=== PATIENT | female | born 1975 | race Two or more races ===

== ENCOUNTER 2023-04-26 10:23 | Outpatient (AMB) | payer MEDICAID, SELFPAY ==
--- NOTE | 2023-04-26 10:39 | MHC.AMNUTRGE ---
Intake VS Expanded 04/26/23 18:58 04/27/23 10:26 Height 5 ft 5 in 5 ft 5 in Weight 133 lb 0.2 oz 133 lb 0.2 oz BMI 22.1 22.1 Intake Visit Reasons: Nutrition Allergies No Known Allergies [No Known Allergies*] Allergy (Unverified 04/11/20 19:00) HPI Nutrition Presentation Details Pt presents for nutrition consult for nutritional feeds. The Pt was referred by Dr. Anna Velásquez. The Pt is accompanied by a staff from [facility]. The Pt is non verbal , non ambulatory, has dx of cerebral palsy, quadruplegia and is dependent on tube feeding. The Pt is NPO and obtains her nutrition via G- tube feedings as follows: on Fibersource HN 1.2 at 75 ml/hr from 7 PM to 7AM (total of 900 ml/d), 30 ml water flush before and after feedings, 250 ml water boluses 4 times a day, 75 ml water with protein supplement (procel 1 scoop 5 g protein) three times a day The Pt is on fibersource HN 1.2 since August 2022 and staff reports Pt's weight has maintained: wt in August at 132.8 and weight in February at 133.2 lbs. Staff reports Pt appears to tolerate feedings well, deny any vomiting, diarrhea, swelling The Pt is also receiving the following via G-tube: procel protein powder 1 scoop (5 g of protein) 3 times/day with 75 ml water each time. Multivitamin once daily oyster shell calcium tablet 500 mg calcium citrate 500 mg 2 tabs per day vitamin D 3 1600 IU/day No nutritional labs at the time of this appointment. Nutrition Needs Calculation Weight 133 lb Estimated kcal needs (kcal/day) 1,500 (as per MSJ) Estimated protein needs (gm/day) 60 (60-72 g/d as 1.0- 1.2 g/kgBW) Estimated fluid needs (mls/day) 1,800 (1591-4316 as per 30-35 ml/kg BW) XRQ-Gjytgej-Vu.Jeor Equation Height 5 ft 5 in Weight 133 lb Resting Metabolic Rate 1232.47 Calculated Activity Level Sedentary Calories Needed to Maintain Weight 1478.96 Most Recent Diabetes Results: No Data to Display Assessment & Plan Assessment & Plan (1) Feeding by G-tube: Code(s): Z93.1 - Gastrostomy status Plan: In view of weight maintenance as per recorded weight from Aug to February of 2023, may recommend continuing feeds as established : Fibersource HN 1.2 at 75 ml per hour ( total of 900 ml per day) with additional 5 g of protein (from procel protein powder) three times a day with 75 ml of water each time . May recommend increasing free water to 275 ml 4 times a day. This provides total calories 1170 calories, 63.6 g protein, 1829 ml water May recommend increasing rate of formula feed to 85 ml/hr from 7pm - 7AM (total of 1020 ml) with 30 ml water before and after feeding and provide 245 ml free water 4 times/day plus 10 g of protein with 150 ml water if noticing Pt losing weight reaching 128 lbs or less (this will provide 1224 kcal, 65 g protein , 1836 ml water) Patient Instructions: Continue feeding as established in view of weight maintenance: Fibersource HN 1.2 at 75 ml per hour ( total of 900 ml per day) with additional 5 g of protein (from procel protein powder) three times a day with 75 ml of water. May recommend increasing free water to 275 ml four times a day May recommend monitoring nutritional labs: for Anemia: iron, vitamin B 12 , folate, pre albumin Consider increasing rate of formula feed if noticing weight loss (128 lbs or less) as recommend under plan above. Coding Level of Care Code Nutr Indiv Intake (30148) Diagnoses Feeding by G-tube Z93.1 Time Spent (min) 30
[2023-04-26 18:58] VITALS: BMI 22.1
[2023-04-28 12:25] VITALS: BMI 22.1
== END 2023-04-26 13:45 | disposition home or self-care (01) ==
PROVIDERS: PCP Internal Medicine; Visit Provider Dietitian, Registered
DX: Z93.1 Gastrostomy status (principal)

== ENCOUNTER → 2023-04-26 10:23 | Outpatient (BNVA) | payer MEDICAID, SELFPAY | PROVIDERS: PCP Internal Medicine; Visit Provider Dietitian, Registered | DX: Z93.1 Gastrostomy status (principal); G80.8 Other cerebral palsy; Z71.3 Dietary counseling and surveillance | CPT/HCPCS: 97802; 99202 ==

== ENCOUNTER 2023-06-29 09:51 | Outpatient (AMB) | payer MEDICAID, SELFPAY ==
[2023-06-29 10:19] VITALS: BMI 22.5
--- NOTE | 2023-06-29 10:19 | MHC.AMNUTRGE ---
Intake VS Expanded 06/29/23 10:19 Height 5 ft 5 in Weight 135 lb 1 oz BMI 22.5 Intake Visit Reasons: feeding tube Allergies No Known Allergies [No Known Allergies*] Allergy (Unverified 04/11/20 19:00) Medication List - Last Reconciled 06/29/[address], LDN calcium carbonate (Oyster Shell Calcium) 500 mg PO DAILY calcium citrate 500 mg PO BID cholecalciferol (vitamin D3) (Vitamin D3) 25 mcg PO DAILY multivitamin with minerals pkgs PO protein ea PO HPI Nutrition Presentation Details Pt presents for nutrition f/u consult for nutritional feeds. The Pt was referred by Dr. Anna Velásquez. The Pt is accompanied by a staff from [facility]. The Pt is non verbal , non ambulatory, has dx of cerebral palsy, quadruplegia and is NPO and dependent on feedings via G tube. Feedings are as follow: Fibersource HN 1.2 at 75 ml/hr from 7 PM to 7AM (total of 900 ml/d), 30 ml water flush before and after feedings, 300 ml water boluses 4 times a day, 30 ml water with protein supplement (procel 1 scoop 5 g protein) three times a day (procel protein powder 1 scoop= 5 g protein/25 calories) and 30 ml with medications No current lab information at the time of this appointment Staff reports weight in 04/26/23 at 133.1 lbs May 12, 2023 at 135.1, wt on 06/09/2023 at 134.9 , staff deny skin breakdown, no wounds, no signs of dehydration, or over hydration. Pt tolerating feedings well, no questions or concerns expressed at this time. Pt is also receiving via Social IQ (Social Influence Quotient)ube: Multivitamin with mineral once daily oyster shell calcium tablet 500 mg calcium citrate 500 mg 2 tabs per day vitamin D 3 1600 IU/day No nutritional labs at the time of this appointment. Assessment Assessment details Used wt 60 kg ( from 04/2023) Est kcal needs as per MSJ : 1500 kcal/d Est fluid needs as per 30-35 ml/kg bw: 4700-4291 ml/d Est protein as per 1.0- 1.2 g/kg bw: 60-72 g/d Pt is currently on Fiber source HN 1.2 via G tube at 75 ml/hour for 12 hours (900 ml/day) plus 1 scoop of protein powder 3 times a day. This provides 1164 calories and 64 g of protein per day Fluid intake: 729 ml from formula plus 300 ml 4 times/day and additional 150 ml for medications distributed in 30 ml portions Pt's weight is maintaining with current formula feeds at 19 kcal /kg body weight, receiving 1g protein/kg bw and obtaining about 2079 ml fluids per day. Pt is getting multivitamins with fiber and is also on calcium supplements and fiber supplements. Per staff Pt is tolerating feedings well, no vomiting, no diarrhea, no wounds Most Recent Diabetes Results: No Data to Display Assessment & Plan Assessment & Plan (1) Feeding by G-tube: Code(s): Z93.1 - Gastrostomy status Plan: Continue feeds as established. Follow up in 6 months. Call for questions or concerns prior to next follow up Patient Instructions: Continue feeds as established. Follow up in 6 months. Call for questions or concerns prior to next follow up Coding Level of Care Code Nutr Indiv Subseq (91293) Diagnoses Feeding by G-tube Z93.1 Time Spent (min) 30
== END 2023-06-29 10:35 | disposition home or self-care (01) ==
PROVIDERS: PCP Internal Medicine; Visit Provider Dietitian, Registered
DX: Z93.1 Gastrostomy status (principal)

== ENCOUNTER → 2023-06-29 09:51 | Outpatient (BNVA) | payer MEDICAID, SELFPAY | PROVIDERS: PCP Internal Medicine; Visit Provider Dietitian, Registered | DX: Z93.1 Gastrostomy status (principal) | CPT/HCPCS: 97803 ==

== ENCOUNTER 2023-12-22 10:35 | Outpatient (AMB) | payer MEDICAID, SELFPAY ==
--- NOTE | 2023-12-22 10:45 | A.OFFVIS_ITS ---
VS Expanded 12/22/23 11:05 Height 5 ft 5 in Weight 135 lb 0.4 oz BMI 22.5 Intake Visit Reasons: feeding tube/CONFIRMED Allergies No Known Allergies [No Known Allergies*] Allergy (Unverified 04/11/20 19:00) Nutrition Presentation Details: Pt presents for MNT f/u for enteral feedings. The Pt is followed by Dr. Anna Velásquez. The Pt is accompanied by a staff from [facility]. The Pt is non verbal , non ambulatory, has dx of cerebral palsy, quadruplegia. The Pt is NPO, dependent on feedings via G tube. Feedings are as follow: Fibersource HN 1.2 at 75 ml/hr from 7 PM to 7AM (total of 900 ml/d), 30 ml water flush before and after feedings, 300 ml water boluses 4 times a day, 30 ml water with 1 scoop of procel protein supplement three times a day (procel protein powder 1 scoop= 5 g protein/25 calories) . Pt is also getting 30 ml of water with fiber supplement (getting 1 packet of metamucil = 2.4 g of fiber ) and with medications No current lab information at the time of this appointment Staff reports weight continues stable at 135.4 lbs Staff deny skin breakdown. Pt has no wounds, no signs of dehydration, or over hydration. No nutritional labs at the time of this appointment. Pt tolerating feedings well. Pt is also receiving via Gtube: Multivitamin with mineral once daily oyster shell calcium tablet 500 mg calcium citrate 500 mg 2 tabs per day vitamin D 3 1600 IU/day Staff reports noticing daily liquid stools, once or twice a day. NOTED Pt is on citrucel (metamucil daily), Colace - which per staff is stopped if loose stools and also on miralax for constipation. BS Monitoring Most Recent Diabetes Results: No Data to Display Nutrition Needs Calculation Weight: 135 lb (61 kg) Estimated protein needs (gm/day): 61 (1.0 g /kg bw) Estimated fluid needs (mls/day): 2,300 (as per William Rebolledo) Assessment & Plan Assessment & Plan (1) Feeding by G-tube: Code(s): Z93.1 - Gastrostomy status Category: Medical Plan: In view of weight maintenance , may recommend continuing feeds as established : Fibersource HN 1.2 at 75 ml per hour for 12 hour s(7pm to 7AM) ( total of 900 ml per day) with additional 5 g of protein (from procel protein powder) three times a day with 30 ml of water each time and 300 ml water bolus 4 times a day . This provides total calories 1155 calories, 63.6 g protein, and total of 2300 (727 ml water from formula 1573 ml additional water distributed throughout the day for water bolus/flushing/meds) RECOMMENDATION TO PCP: Cha recommend considering discontinuing miralax as this may be causing liquid stools in the Pt . RD will Re evaluate in 3 months : need to increase fiber/fluid if developing constipation Patient Instructions: Continue feedings as above May recommend for PCP to consider discontinuing miralax due to possibly causing liquid stools. Coding Level of Care Code Nutr Indiv Subseq ([id number]) Diagnoses Feeding by G-tube Z93.1 Time Spent (min) 30
[2023-12-22 11:05] VITALS: BMI 22.5
== END 2023-12-22 11:10 | disposition home or self-care (01) ==
PROVIDERS: PCP Internal Medicine; Visit Provider Dietitian, Registered
DX: Z93.1 Gastrostomy status (principal)

== ENCOUNTER → 2023-12-22 10:35 | Outpatient (BNVA) | payer MEDICAID, SELFPAY | PROVIDERS: PCP Internal Medicine; Visit Provider Dietitian, Registered | DX: Z93.1 Gastrostomy status (principal) | CPT/HCPCS: 97803 ==

== ENCOUNTER 2024-04-24 10:37 | Outpatient (AMB) | payer MEDICAID, SELFPAY ==
--- NOTE | 2024-04-24 10:45 | MHC.AMNUTRGE ---
VS Expanded 04/24/24 10:48 Height 5 ft 5 in Weight 135 lb BMI 22.5 Intake Visit Reasons: feeding tube/CONFIRMED Allergies No Known Allergies [No Known Allergies*] Allergy (Unverified 04/11/20 19:00) Nutrition Presentation Details: Pt presents for MNT flu for Tube feeding Staff reports no concerns, Pt tolerating formula well , bowel movements are normal for her, without loose stools. PT on Fibersource HN 1.2 at 75 ml per hour for 12 hour s(7pm to 7AM) ( total of 900 ml per day) with additional 5 g of protein (from procel protein powder) three times a day with 30 ml of water each time and 300 ml water bolus 4 times a day BS Monitoring Most Recent Diabetes Results: No Data to Display Assessment & Plan Assessment & Plan (1) Feeding by G-tube: Code(s): Z93.1 - Gastrostomy status Category: Medical Plan: In view of weight maintenance and tolerance to the current feedings may recommend continuing feeds as established : Fibersource HN 1.2 at 75 ml per hour for 12 hour s(7pm to 7AM) ( total of 900 ml per day) with additional 5 g of protein (from procel protein powder) three times a day with 30 ml of water each time and 300 ml water bolus 4 times a day . This provides total calories 1155 calories, 63.6 g protein, and total of 2300 (727 ml water from formula 1573 ml additional water distributed throughout the day for water bolus/flushing/meds) Call for any questions prior to next f/u. Coding Level of Care Code Nutr Indiv Subseq ([id number]) Diagnoses Feeding by G-tube Z93.1 Time Spent (min) 20
[2024-04-24 10:48] VITALS: BMI 22.5
== END 2024-04-24 11:05 | disposition home or self-care (01) ==
PROVIDERS: PCP Internal Medicine; Visit Provider Dietitian, Registered
DX: Z93.1 Gastrostomy status (principal)

== ENCOUNTER → 2024-04-24 10:37 | Outpatient (BNVA) | payer MEDICAID, SELFPAY | PROVIDERS: PCP Internal Medicine; Visit Provider Dietitian, Registered | DX: Z93.1 Gastrostomy status (principal) | CPT/HCPCS: 97803 ==

== ENCOUNTER 2024-10-31 10:03 | Outpatient (AMB) | payer MEDICAID, SELFPAY ==
--- NOTE | 2024-10-31 10:17 | A.OFFVIS_ITS ---
VS Expanded 10/31/24 10:21 Height 5 ft 5 in Weight 141 lb 0.5 oz BMI 23.5 Intake Visit Reasons: Feeding tube tolerance/ gain weight Allergies No Known Allergies [No Known Allergies*] Allergy (Unverified 04/11/20 19:00) Medication List - Last Reconciled 11/02/[address], LDN bisacodyl (Dulcolax (bisacodyl)) 10 mg HI ONCE PRN calcium carbonate (Oyster Shell Calcium) 500 mg PO DAILY cholecalciferol (vitamin D3) (Vitamin D3) 1,200 units feeding tube DAILY clobazam (Onfi) 10 mg feeding tube BID docusate sodium 100 mg feeding tube BID lamotrigine ER (Lamictal XR) 300 mg PO .twice methylcellulose (laxative) (Citrucel) 1,000 mg feeding tube DAILY multivitamin with minerals pkgs PO protein ea PO sennosides-docusate sodium 8.6-50 mg (Laxative Stool Softener With Senna) 1 tab- cap PO BEDTIME Nutrition Presentation Details: Pt presents for MNT f/u on nutritional feeds. Pt 's PCP Dr. Anna Velásquez Pt resides in correction and presents with staff during this appointment. Staff reports recent visit at the PCP shows gradual weight gain with most recent weight at 141 lbs Hx: The Pt is non verbal , non ambulatory, has dx of cerebral palsy, quadruplegia and is dependent on enteral feeding via Gtube. Pt currently on Fibersource HN 1.2 at 75 ml/hr from 7 PM to 7AM (total of 900 ml/d), 30 ml water flush before and after feedings, 300 ml water boluses 4 times a day, Pt also getting protein supplement (procel 1 scoop 5 g protein) three times a day mixed with water No current labs/doctors note during this visit. Office notes and most recent labs requested from PCP- contacted Dr. Velásquez's office at [phone]. BS Monitoring Most Recent Diabetes Results: No Data to Display Nutrition Needs Calculation Weight: 141 lb Estimated kcal needs (kcal/day): 960 (15 - 18 kcal/kg current BW) Estimated protein needs (gm/day): 61 (0.8-1.2 g/kg BW) Estimated fluid needs (mls/day): 2,400 (as per William Segar) Assessment & Plan Assessment & Plan (1) Feeding by G-tube: Code(s): Z93.1 - Gastrostomy status Category: Medical Plan: Reduce total caloric intake to prevent further weight gain as follow * Provide Fibersource HN 1.2 at 80 ml per hour for 10.5 hour ( total of 840 ml per day), flush with 30 ml water before and after feeding. (This provides about 1000 calories, 41 g protein , 10 g fiber , 740 ml water) * Increase protein to 2 scoops procel protein mixed with 480 ml water 2 times a day (This provides 20 g of protein, 100 agustin, and 960 ml water) * Additional water to meet recommended needs: 200 ml x 4 per day (to be used for water flush ,meds, water bolus) This provides a total of 1100 agustin, 61 g prot, 10 g fiber, 2440 ml water Monitor weight weekly, assess for dehydration , constipation , diarrhea, Call for any questions prior to next f/u. Coding Level of Care Code Nutr Indiv Subseq ([id number]) Diagnoses Feeding by G-tube Z93.1 Time Spent (min) 30
[2024-10-31 10:21] VITALS: BMI 23.5
--- OUTSIDE RECORDS SUMMARY | 2024-10-31 11:42 | XMS_ITS | Clinical Summary ---
Author Organization [facility] Facility Address [address] [place] [id number] Care Team Providers Care Pen Ruler Operator Name Role Phone Unavailable Primary Care Provider Unavailabl e Social History Tobacco Use Types Packs/Day Years Used Date Smoking Tobacco: Never Assessed Comments Unknown Sex and Gender Information Value Date Recorded Sex Assigned at Not on file Legal Sex Female 12:04 PM EDT Gender Identity Not on file Sexual Orientation Not on file Plan of Treatment Health Maintenance Due Date Last Done Comments Breast Cancer Screening 1973 Hepatitis B Vaccine (1 of 3 - 19+ 3-dose series) 1992 Colorectal Cancer Screening: Annual FOBT 2022 Colorectal Cancer Screening: Colonoscopy 2022 Colorectal Cancer Screening: Sigmoidoscopy 2022 Influenza Vaccine (Season Ended) 2025 Pneumococcal Vaccine: Pediat rics (0 to 5 Years) and At-Risk Patients (6 to 64 Years) Aged Out No longer eligible b ased on patient's age to complete this topic Insurance [place]
--- OUTSIDE RECORDS SUMMARY | 2024-10-31 11:42 | XMS_ITS | Data Portability ---
Author Organization [place] - [facility], Allergy Address [address] [address] Care Team Providers Care Molybdenum Steamer Operator Name Role Phone JUSTIN MONROY Primary Care Provider Assessment Encounter Date Assessment Date Assessment LastModified by Organization Details LastModified Time 06/20/2024 06/20/2024 Impacted cerumen was debrided bilaterally today using suction. She will follow up in six months. [email or web address] Not available 06/20/2024 13:45:31 Plan of Treatment Reminders Order Date Submit Date Provider Last Modified By Organization Details Last Modified Time Details Appointments Establish ed 15 2024 01:15P Nathaly BOWEN PA-C Not available Not available Not available Lab None recorded. Referral None recorded. Procedures None recorded. Surgeries None recorded. Imaging None recorded. Medication Orders None recorded. Patient TargetsNo targets recorded. Patient InstructionsNo instructions recorded. Reason for Referral None Reported. Problems Name Problem SNOMED Code Status Onset Date Resolution Date Notes Provider Name and Address Organization Details Recorded Time Impacted cerumen of bilateral ears [id number] 42126 Active 2017 Impacted cerumen, bilateral ; Note: Date Diagnosed : 04/28/2018 11:07 AM (H61.23) Not Available [facility] 03:30:10 Problem Notes None recorded. Medical Equipment None Reported. Allergies Allergen ID Allergen Name Allergen Category Reaction Reaction Severity Criticality Documentation Date Start Date Code Code System Note Provider Name and Address Organization Details Recorded Time 042522 valproic acid medicatio n other Not available Not available 12/07/2023 42756 RxNorm React ion: unkno wn, unspe cifie d;; Not Available [facility] 01:23:55 [id number] penicilli n V potassium medicatio n other Not available Not available 12/07/2023 5 RxNorm React ion: unkno wn, unspe cifie d;; Not Available [facility] 01:23[facility]56 Medications Name Sig Start Date Stop Date Status Note LastModified by Organization Details LastModified Time oyster shell calcium 500 mg tabs active Not Available Not Available Not Available diphenhyd ramine 12.5 mg/5 mL oral liquid active Not Available Not Available Not Available albuterol sulfate 2.5 mg/3 mL (0.083 %) solution for nebulizat ion active Not Available Not Available Not Available cetirizin e 10 mg tablet active Not Available Not Available Not Available azithromy sriram 250 mg tablet active Not Available Not Available No t Available Milk of Magnesia 400 mg/5 mL oral suspensio n active Not Available Not Available Not Available bacitraci n 500 unit/gram topical ointment active Not Available Not Available Not Available Enema Disposabl e 19 gram-7 gram/118 mL active Not Available Not Available Not Available Ciloxan 0.3 % eye drops 06/03 completed Medicati on ID: [id number] D uration Value: 5 Prescri bed By Name: TYSON Beauchamp nd Name: Ciloxan Send Method: E-Prescr ibed Sub s Allowed: subs OK Speci al Instruct ion: Instill 4 drops twice a day into left ear for 5 days Med icationG enericNa me: Ciloxan Not Available Not Available Not Available Sudogest 30 mg tablet active Not Available Not Available Not Available acetamino phen ER 650 mg tablet,ex tended release active Not Available Not Available Not Available Vitamin D3 10 mcg (400 unit) tablet active Not Available Not Available Not Available calcium 500 mg (as calcium carbonate 1,250 mg) tablet active Not Available Not Available Not Available bisacodyl 10 mg rectal supposito ry active Not Available Not Available Not Available promethaz ine 25 mg tablet active Not Available Not Available Not Available Citrucel 500 mg tablet active Not Available Not Available Not Available ibuprofen 400 mg tablet active Not Available Not Available Not Available Ear Drops (carbamid e peroxide) 6.5 % 4 drop into both ears active Not Available Not Available No t Available docusate sodium 100 mg capsule active Not Available Not Available Not Available polyethyl omid glycol 3350 17 gram/dose oral powder active Not Available Not Available Not Available Citrucel (sucrose) oral powder 2017 active Medicati on ID: [id number] B rand Name: Citrucel (sucrose ) Send Method: E-Prescr ibed Sub s Allowed: subs OK Medic ationGen ericName : Citrucel (sucrose ) Not Available Not Available Not Available multivita min capsule 2017 active Medicati on ID: [id number] B rand Name: multivit valentine Sen d Method: E-Prescr ibed Sub s Allowed: subs OK Medic ationGen ericName : multivit valentine Not Available Not Available Not Available lamotrigi ne 100 mg tablet active Not Available Not Available Not Available levetirac etam 100 mg/mL oral solution active Not Available Not Available Not Available metoprolo l tartrate 25 mg tablet TAKE 1 TABLET BY GASTROST CHRISTOPHER TUBE ROUTE 2 (TWO) TIMES A DAY NEEDED (HR >100 HOLD FOR SBP <100). active Not Available Not Available No t Available Procel Singles 5 gram-26 kcal oral powder packet 2017 active Medicati on ID: [id number] B rand Name: Procel Singles Send Method: E-Prescr ibed Sub s Allowed: subs OK Medic ation ericName : Procel Singles Not Available Not Available Not Available Vitamin D3 10 mcg (400 unit) capsule 2017 active Medicati on ID: [id number] B rand Name: Vitamin D3 Send Method: E-Prescr ibed Sub s Allowed: subs OK Medic ationGen ericName : Vitamin D3 Not Available Not Available Not Available vitamins A and D-white petrolatu m-lanolin topical ointment active Not Available Not Available Not Available One Daily Multivita mins with Minerals 4.5 mg iron tablet active Not Available Not Available Not Available Lamictal XR 250 mg tablet,ex tended release 2017 active Medicati on ID: [id number] B rand Name: Lamictal XR Send Method: E-Prescr ibed Sub s Allowed: subs OK Medic ationGen ericName : Lamictal XR Not Available Not Available Not Available clobazam 10 mg tablet active Not Available Not Available Not Available Stimulant Laxative Plus 8.6 mg-50 mg tablet active Not Available Not Available Not Available Vitals None Recorded Social History None recorded. Functional Status None recorded. Mental Status None recorded. Family History Nothing Reported. Medical History No medical history recorded. Gynecological HistoryNo gynecological history recorded. Obstetrics History GPAL:G 0 P 0 0 0 0 Past Encounters Encounter ID Performer Location Encounter Start Date Encounter Closed Date Diagnosis/Indication Diagnosis SNOMED-CT Code Diagnosis ICD10 Code Diagnosis Note [id number] EMERY PALUMBO MD [facility] on [address] [place] [address] 06/20/2024 13:20:05 06/20/2024 13:42:06 Impacted cerumen of bilateral ears [id number] 116182 H61.23 Health Concerns Section Related Observation LastModified by Organization Detai ls LastModified Time None Recorded Concern Status LastModified by Organization Details LastModified Time None Recorded Advance Directives Directive None Recorded Payers Encounter Date Sequence Insurance Name Policy Number Policy Herrera Covered Member ID Herrera Member ID Guarantor Name 06/20/2024 1 [facility] Padmini Garcia [id number] Padmini Garcia Notes Date Note Type Note Provider Name and Address Organization Details Recorded Time 06/20/2024 text/html 48 year old alyssa scruggs with developmental delay presents today with a landscape laborer for an ear cleaning.No specific concerns from her landscape laborer today. EMERY PALUMBO MD [address] [place] [address], [phone], [facility] - [facility] 06/21/2024 11:24:01 OBGyn Episode No OBEpisode recorded.
--- OUTSIDE RECORDS SUMMARY | 2024-10-31 11:42 | XMS_ITS | Data Portability ---
Author Organization [place] - [facility] Address [address] [place] [address] Care Team Providers Care Cruise Counselor Name Role Phone YORKKATY Primary Care Provider Assessment Encounter Date Assessment Date Assessment LastModified by Organization Details LastModified Time 05/09/2020 05/09/2020 Overview/History :Michael hodge is a 44-year-old female that as a new patient who [facility]. She resides in a custodial, she has a medical history significant for seizures and developmental delay. 1 of the other residents of her custodial had a fever and now as a prophylactic measure staff at her custodial are having all the residents tested. They report she is at any symptoms concerning for COVID, no fevers and has been in her usual state of health. Exam: On exam patient is awake and alert, she is tracking, not following commands and is nonverbal. She appears in no acute distress, respirations are even and unlabored no increased work of breathing. Palpable peripheral pulses. DDx considered, but not limited to:Not an urgent care visit asymptomatic COVID testing. Work up/Results: The patient was swabbed for COVID-19. Plan/Discussion:I discussed with custodial staff that the patient's COVID test results would likely be back in the next 3-5 days. I did advise that I have attached the patient's PCP to the order so that they will also be getting a copy of the patient's results. We will be in contact with the custodial when the COVID-19 test has resulted. In order to obtain further information and compare any laboratory results/values, I have accessed old patient records. This information was pertinent in my medical decision making today. Proper Personal Protective Equipment (PPE), including gloves, eye protection, N95 mask, gown, and shoe covers were donned and doffed appropriately and all equipment cleaned using approved technique with germicidal disposable wipes prior to and after care of this patient according to [facility]'s infection prevention protocols. The patient under our care today has requested testing for the COVID-19 virus. Currently, they are asymptomatic. Testing was discussed with the patient to ensure understanding of the limitations of this test, including the fact that a negative test does not entirely exclude the possibility of COVID-19 infection. Based on the history obtained and exam today, the decision was made to test for COVID-19 in light of the current pandemic state. The patient was involved in the decision to test using a shared medical decision-making model. Time On Scene with Patient: 00:42:16 Time On Scene with Patient: 00:42:16 [email or web address] Not available 05/12/2020 05:01:21 09/05/2020 09/05/2020 Overview/History :Michael hodge is a 44-year-old female that resides in a custodial. [facility] staff noted her to be crying with new usually last night and believed that her left ankle may appear slightly more swollen than usual. They deny any known trauma. She had received 1 dose of ibuprofen which seemed to help things. Staff present during my visit report that she looks comfortable presently. Exam: On exam patient is afebrile and hemodynamically stable. Nontoxic appearing. She is bedfast and contracted. Her left ankle is internally rotated but this not appear to be acute or new. No pain with palpation of left ankle or of left foot. No erythema, trace swelling to bilateral lower extremities. No evidence of acute abnormality or wounds. DDx considered, but not limited to:Soft tissue injury considered as there is some swelling and reported tenderness yesterday though does not appear to be tender now and there is no known precipitating event. Dependent edema considered in most likely period acute fracture considered but less likely as there is no recent trauma. Cellulitis considered but unlikely given no erythema or drainage. Work up/Results:X-ray of left ankle and foot pending to evaluate for evidence of fracture. Plan/Discussion:I discussed with the line manager of the custodial that she is not showing any signs of pain during my exam today. I have advised for her to take ibuprofen 3 times daily for the next 3 days. If she continues to have pain she can use her peer and for Tylenol. I did explain that I would arrange for mobile imaging to ensure that there is no acute fracture to the area. I did reassure her I see no evidence of infection. In order to obtain further information and compare any laboratory results/values, I have accessed old patient records. This information was pertinent in my medical decision making today. Time On Scene with Patient: 00:25:44 [email or web address] Not available 09/05/2020 21:26:04 Plan of Treatment Reminders Order Date Submit Date Provider Last Modified By Organization Details Last Modified Time Details Appointments None recorded. Lab SARS CoV 2 RNA (COVID-19), QL, vat operator-PCR, respiratory specimen 2019 020 DOMENICO [facility] (Centralized Electronic Ordering - All Locations), Patient Can Go To The Location Of Their Choice, [id number] 0 07:29:16 Referral None recorded. Procedures None recorded. Surgeries None recorded. Imaging XR, ankle, 3 or more view 2020 021 [email or web address] [facility] ([facility]), [address] [facility] [address], [place], [address], 1 15:15:58 XR, foot, 2 view 2020 021 [email or web address] [facility] ([facility]), [address] [facility], [place], [address], 1 12:29:51 Medication Orders None recorded. Patient TargetsNo targets recorded. Patient Instructions Encounter Date Encounter Id Patient Instructions Last Modified By Organization Details Last Modified Time 05/09/2020 [id number] You will be advi sed of your COVID-19 results as they become available. A [facility] team guide will contact you to let you know the results. We will also communicate the results to your primary care provider if you have one for any follow up needs you may have. Since you do not have symptoms currently, there is no recommendation to self-quarantine. Please continue to wash your hands and practice social distancing as recommended by your local government and public health agencies. If you develop mild symptoms, stay home and isolate yourself. Please continue to monitor the CDC website as the recommendations for length of quarantine change as additional information is released on this virus. Symptoms of Coronavirus What you need to know ? ? ? Anyone can have mild to severe symptoms. ? ? ? Older adults and people who have severe underlying medical conditions like heart or lung disease or diabetes seem to be at higher risk for developing more serious complications from COVID-19 illness. Watch for symptoms People with COVID-19 have had a wide range of symptoms reported ? ranging from mild symptoms to severe illness. Symptoms may appear 2-14 days after exposure to the virus. People with these symptoms may have COVID-19: ? ? ? Fever or chills ? ? ? Cough ? ? ? Shortness of breath or difficulty breathing ? ? ? Fatigue ? ? ? Muscle or body aches ? ? ? Headache ? ? ? New loss of taste or smell ? ? ? Sore throat ? ? ? Congestion or runny nose ? ? ? Nausea or vomiting ? ? ? Diarrhea This list does not include all possible symptoms. The CDC will continue to update this list as we learn more about COVID-19. When to Seek Emergency Medical Attention Look for emergency warning signs* for COVID-19. If someone is showing any of these signs, seek emergency medical care immediately ? ? ? Trouble breathing ? ? ? Persistent pain or pressure in the chest ? ? ? New confusion ? ? ? Inability to wake or stay awake ? ? ? Bluish lips or face *This list does not include all possible symptoms. Please call your medical provider for any other symptoms that are severe or concerning to you. Call 911 or call ahead to your local emergency facility: Notify the radioisotope production operator that you are seeking care for someone who has or may have COVID-19. [email or web address] Not available 05/09/2020 16:22:50 Reason for Referral None Reported. Results Created Date Observation Date Name Description Value Unit Range Abnormal Flag Note LastModifiedBy Organization Detail LastModifiedTime 05/09/20 20 05/15/2020 SARS CoV 2 RNA (COVI D-19) , QL, vat operator-P CR, respi rator y speci men covid-19, ARLENE Not Detec jose Refer ence range : Not Detec jose (NOTE ) This nucle ic acid ampli ficat ion test was devel oped and its perfo rmanc e dominguez cteri stics deter mined by [facility] rp Labor atori es. Nucle ic acid ampli ficat ion tests inclu de PCR and TMA. This test has not been FDA clear ed or appro yaquelin. This test has been autho rized by FDA under an Emerg ency Use Autho rizat ion (EUA) . This test is only autho rized for the durat ion of time the decla ratio n that circu mstan jennie exist justi fying the autho rizat ion of the emerg ency use of in vitro diagn ostic tests for detec tion of SARS- CoV-2 virus and/o r diagn osis of COVID -19 infec tion under secti on 564(b )(1) of the Act, 21 U.S.C . 360bb b-3(b ) (1), unles s the autho rizat ion is termi nated or revok ed soone r. When diagn ostic testi ng is negat agusto, the possi bilit y of a false negat agusto resul t shoul d be consi dered in the torsten xt of a patie nt's recen t expos ures and the prese nce of clini agustin signs and sympt oms consi stent with COVID -19. An indiv idual witho ut sympt oms of COVID - 19 and who is not dustin ing SARS- CoV-2 virus would expec t to have a negat agusto (not detec jose) resul t in this assay . TEST PERFO RMED BY [employer], MAGGIE MARKHAM Y Not Available [facility] (Centralized Electronic Ordering - All Locations) Patient Can Go To The Location Of Their Choice, [id number] 05/15/2020 07:29:16 09/06/19 21 09/06/2020 ankle compl ete, min 3V ANKLE COMPLE TE, MIN 3V, LEFT FINDIN GS: No acute fractu re or disloc ation. The osseou s struct ures appear intact . Joint spaces are preser yaquelin. Soft tissue s are unrema rkable . CONCLU ELIZABETH: No acute osseou s abnorm ality. ELECTR ONICAL LY SIGNED BY SOFIA WAGNER M.D. 021 12:46: 54 PM EST. [email or web address] [facility] ([facility]) [address] [place], [address], 09/06/2020 15:48:09 09/06/19 21 09/06/2020 foot AP and lat 2V FOOT AP and LAT 2V, LEFT FINDIN GS: No acute fractu re or disloc ation. The osseou s struct ures appear intact . Joint spaces are preser yaquelin. Soft tissue s are unrema rkable . CONCLU ELIZABETH: No acute osseou s abnorm ality. ELECTR ONICAL LY SIGNED BY SOFIA WAGNER M.D. 12:46: 54 PM EST. ANKLE COMPLE TE, MIN 3V, LEFT Result s: No acute fractu re or disloc ation. The osseou s struct ures appear intact . Joint spaces are preser yaquelin. Soft tissue s are unrema rkable . Conclu elizabeth: No acute osseou s abnorm ality. Electr onical ly signed by SOFIA WAGNER M.D. 12:46: 54 PM EST. FOOT AP and LAT 2V, LEFT Result s: No acute fractu re or disloc ation. The osseou s struct ures appear intact . Joint spaces are preser yaquelin. Soft tissue s are unrema rkable . Conclu elizabeth: No acute osseou s abnorm ality. Electr onical ly signed by SOFIA WAGNER M.D. 12:46: 54 PM EST. [email or web address] [facility] ([facility] [address] [place], [address], 09/06/2020 15:48:10 Result Notes None recorded. Procedures Surgical History Date Name Laterality Status Provider Name and Address Organization Details Recorded Time 05/09/20 20 Medication Review completed KAM ALVARADO NP [address], [place], [address], [place] - [facility] 05/09/2020 17:32:57 Imaging Results Imaging Date Name Status LastModified by Organiz ation Details LastModified Time 09/06/2020 ankle complete, min 3V [facility] [address] [place], [address], 09/06/2020 15:48:09 09/06/2020 foot AP and lat 2V completed [email or web address] [facility] ([facility]) [address] [place], [address], 09/06/2020 15:48:10 Procedure Notes None recorded. Medical Equipment None Reported. Allergies Allergen ID Allergen Name Allergen Category Reaction Reaction Severity Criticality Documentation Date Start Date Code Code System Note Provider Name and Address Organization Details Recorded Time 021286 valproic acid medicatio n Not available Not available Not available 05/09/2020 86898 RxNorm KAM ALVARADO NP [address] [place], [address], [place] [facility] 0 16:20:00 [id number] Product containin g penicilli n (product) medicatio n Not available Not available Not available 05/09/2020 68355 8001 SNOMED KAM ALVARADO NP [address] [place], [address], [place] [facility] 0 16:20:13 Medications Name Sig Start Date Stop Date Status Note LastModified by Organization Details LastModified Time Colace active Not Available Not Availa ble Not Available Lamictal active Not Available Not Avai lable Not Available Debrox active Not Available Not Availa ble Not Available Miralax active Not Available Not Avail able Not Available Keppra active Not Available Not Availa ble Not Available Vitals Date Recorded Body temperature Heart rate Respiratory rate Oxygen saturation Oxygen saturation in Arterial blood by Pulse oximetry Systolic blood pressure Diastolic blood pressure Provider Name and Address Organization Details Last Updated DateTime 0 96.7 [degF] 97 /min 16 /min 97 % 97 % 115 mm[Hg] 72 mm[Hg] Not Available [facility] 0 16:06:28 Date Recorded Heart rate Body temperature Respiratory rate Oxygen saturation Oxygen saturation in Arterial blood by Pulse oximetry Systolic blood pressure Diastolic blood pressure Provider Name and Address Organization Details Last Updated DateTime 1 86 /min 98.4 [degF] 18 /min 98 % 98 % 106 mm[Hg] 68 mm[Hg] Not Available [facility] 1 16:09:58 Social History Question Answer Notes LastModified by Organizat ion Details LastModified Time Do You Have An Advance Directive? Yes [email or web address] Information not available 05/09/2020 What Is Your Code Status? Full Code [email or web address] Information not available 05/09/2020 Sex: Unknown Functional Status None recorded. Mental Status None recorded. Family History Nothing Reported Notes:pt non verbal Medical History Condition Response Diabetes N Coronary Artery Disease N High Cholesterol N Cancer N Pulmonary Embolism N Stroke N Hypertension N Depression N COPD N Asthma N Kidney Disease N Gynecological HistoryNo gynecological history recorded. Obstetrics History GPAL:G 0 P 0 0 0 0 Past Encounters Encounter ID Performer Location Encounter Start Date Encounter Closed Date Diagnosis/Indication Diagnosis SNOMED-CT Code Diagnosis ICD10 Code Diagnosis Note [id number] KAM ALVARADO NP [facility] [address] [place] [address] 05/09/2020 15:45:31 05/15/2020 11:15:36 Exposure to communicable disease 592298435 Z20.828 [id number] KAM ALVARADO NP [facility] [address] [place] [address] 09/05/2020 15:16:03 09/09/2020 11:55:35 Pain of left ankle joint [id number] M25.572 Health Concerns Section Related Observation LastModified by Organization Detai ls LastModified Time None Recorded Concern Status LastModified by Organization Details LastModified Time None Recorded Advance Directives Directive Y: Payers Encounter Date Sequence Insurance Name Policy Number Policy Herrera Covered Member ID Herrera Member ID Guarantor Name 05/09/2020 1 [place] [facility] Padmini Garcia [id number] Padmini Garcia 09/05/2020 1 [place] [facility] Padmini Garcia [id number] Padmini Garcia Notes Date Note Type Note Provider Name and Address Organization Details Recorded Time 05/09/2020 text/html This is a 44-year-old female that is a [facility] patient [facility]. She has a medical history significant for developmental delay and seizures. She is wheelchair bound and nonverbal and resides in a custodial. 1 of the residents at her custodial developed a fever so as a precaution the custodial is having all of their residence swab for COVID. Staff report the patient has been in her usual state of health and has had no fevers or any other concerning symptoms. KAM ALVARADO NP [address], [place], [address], [place] [facility] 05/15/2020 09:05:41 09/05/2020 text/html This is a 44-year-old female that is known to [facility] then this provider. She lives in a custodial. She has a medical history significant for seizures and developmental delay. She is contracted and bedbound at baseline. Staff at the custodial notice her crying more than usual last night and they believe her left foot and ankle maybe slightly more swollen than usual. There is no report of any recent trauma. They are contacting [facility] for evaluation of this. She was given some p.r.n. ibuprofen and that seemed to improve some of her symptoms. KAM ALVARADO NP [address], [place], [address], [place] [facility] 09/05/2020 21:26:12 OBGyn Episode No OBEpisode recorded.
== END 2024-10-31 11:27 | disposition home or self-care (01) ==
PROVIDERS: PCP Internal Medicine; Visit Provider Dietitian, Registered
DX: Z93.1 Gastrostomy status (principal)

== ENCOUNTER → 2024-10-31 10:03 | Outpatient (BNVA) | payer MEDICAID, SELFPAY | PROVIDERS: PCP Internal Medicine; Visit Provider Dietitian, Registered | DX: Z93.1 Gastrostomy status (principal) | CPT/HCPCS: 97803 ==

== ENCOUNTER → 2024-11-20 10:30 | Outpatient (BNVA) | payer MEDICAID, SELFPAY | PROVIDERS: PCP Internal Medicine; Visit Provider Dietitian, Registered | DX: Z93.1 Gastrostomy status (principal); Z71.3 Dietary counseling and surveillance | CPT/HCPCS: 97803 ==

== ENCOUNTER 2025-04-24 10:32 | Outpatient (AMB) | payer MEDICAID, SELFPAY ==
[2025-04-24 10:50] VITALS: BMI 22.8
--- NOTE | 2025-04-24 10:50 | A.OFFVIS_ITS ---
VS Expanded 04/24/25 10:50 Height 5 ft 5 in Weight 137 lb 0.2 oz BMI 22.8 Intake Visit Reasons: Feeding Tube Allergies No Known Allergies (No Known Allergies*) Allergy (Unverified 04/11/20 19:00) Nutrition Presentation Details: Pt presents for MNT f/u Pt had gained 10 lbs over a yr and we are gradually working on reducing total caloric intake to promote weight loss, goal wt 130-133 lbs Pt [facility] and presents with staff during this appointment. Hx: The Pt is non verbal , non ambulatory, has dx of cerebral palsy, quadruplegia and is dependent on enteral feeding via Gtube. Pt is currently on 840 ml Fibersource HN 1.2 /day and 10 g additional protein (whdlrd1o twice a day) this provides 1000 calories and 55 g protein per day. Pt 's weight fluctuates between 137- 140 lbs, 03/27 137.2 04/12 140 04/10 136.4 04/17 138.2 04/24 137.2 Assessment Recommendation: Reduce agustin from feeding formula and increase prot intake to meet needs Nutrition Needs Calculation Weight: 136 lb 10.986 oz Estimated kcal needs (kcal/day): 750 (12-13 kcal/kg bw Pt non ambulatory with cerebral palsy) Estimated protein needs (gm/day): 60 (50-60 g per day (0.8 to 1.0 g /kg bw)) Estimated fluid needs (mls/day): 2,300 (as per William Rebolledo) Assessment & Plan Assessment & Plan (1) Feeding by G-tube: Code(s): Z93.1 - Gastrostomy status Category: Medical Plan: Reduce total calorie by 250 by reducing feeding rate as follows: * Fibersource HN 1.2 @ 71 ML/HR for 10.5 hour/day ( total of 625 ml per day), flush with 30 ml water before and after feeding. (This provides about 750 calories, 34 g protein, 9.5 g fiber, 500 ml water) * Recommend increasing protein procel from 5g twice a day to 15 g mixed with 300 ml water twice a day (for an additional 30 g of protein to meet recommended needs ) and flush with 30 ml water before and after feeding * (DOCTOR- May recommend considering prosource plus liquid protein instead of the powder which can lessen clogging via Gtube * Additional water bolus to meet recommended fluid needs: 300 ml water x 4 per day This provides a total of 900, 64 g prot, 9.5 g fiber, 2400 ml water /d * Keep head of bed elevated, 30-45 degree angles at all times while receiving tube feed. * Check residuals every 4 hours while feed is running during the night. If residual is greater than 160 ml , hld feed for one hour and then recheck. Feed may resume when residual is less than 160 ml. * Monitor weight weekly, working on weight maintenance, monitor bowels for constipation. PCP may recommend monitoring for nutritional deficiencies : Iron, B12, B6, vit D, zinc, mg Coding Level of Care Code Nutr Indiv Subseq (30355) Diagnoses Feeding by G-tube Z93.1
--- OUTSIDE RECORDS SUMMARY | 2025-04-24 11:45 | XMS_ITS | Encounter Summary ---
Author Organization [facility] Address [address] [facility] [address] [place] [address] Phone Care Team Providers Care Casing Operator Name Role Phone Renny Miranda MD Primary Care Provide r Renny Miranda MD Unavailable Siomara Hinson DO Primary Care Provider [phone] Damien Riggs MD Unavailable [phone] Anna Velásquez MD Primary Care Provider Anna Velásquez MD Unavailable [phone] Encounter Details Date Type Department Care Team (Latest Contact Info) Description 02/21/2018 Transcribe Orders [address] [address] Damien Cordova MD [address] [place] [address], [address] [place], [place] [id number] [email or web address] Seizure (Primary Dx) Social History Tobacco Use Types Packs/Day Years Used Date Smoking Tobacco: Never Smokeless Tobacco: Never Alcohol Use Standard Drinks/Week Comments No 0 (1 standard drink = 0.6 oz pur e alcohol) Comments Unknown Sex and Gender Information Value Date Recorded Sex Assigned at Not on file Legal Sex Female 9:31 PM EDT Gender Identity Not on file Sexual Orientation Not on file documented as of this encounter Plan of Treatment Upcoming Encounters Date Type Department Care Team (Late st Contact Info) Description 07/09/2025 10:40 AM EST Office Visit [facility] [place] [facility] [address] [facility] [address] [place] [address] Anna Velásquez MD [address] [facility] [address] [place] [address] [email or web address] 08/08/2025 9:30 AM EST Office Visit [facility], Allergy and Critical Care Medicine 10 [place] [address] Warren Zayas MD 30 [place] [address] [email or web address] documented as of this encounter Results * Levetiracetam (Keppra) level (02/21/2018 9:04 AM EDT) LEVETIRACETAM 20.0 12.0 - 46.0 mcg/mL [facility] Comment: (NOTE) ADDITIONAL INFORMATION This test was developed and its performance characteristics determined by [facility] in a manner consistent with CLIA requirements. This test has not been cleared or approved by the U.S. Food and Drug Administration. Blood 02/21/2018 9:04 AM EDT 02/21/2018 9:22 AM EDT us Damien Cordova MD LAB BLOOD ORDERABLES Final R esult [facility] [address] [place] [address] * LAMOTRIGINE LEVEL (02/21/2018 9:04 AM EDT) LAMOTRIGINE 5.5 2.5 - 15.0 mcg/mL [facility] Comment: (NOTE) ADDITIONAL INFORMATION This test was developed and its performance characteristics determined by [facility] in a manner consistent with CLIA requirements. This test has not been cleared or approved by the U.S. Food and Drug Administration. Blood 02/21/2018 9:04 AM EDT 02/21/2018 9:22 AM EDT us Damien Cordova MD LAB BLOOD ORDERABLES Final R es[facility] [address] [place] [address] documented in this encounter Visit Diagnoses Diagnosis Seizure- Primary Other convulsions documented in this encounter Additional Health Concerns Infection Onset Date Last Indicated Resolved Time CoV-Risk 12/21/2019 12/21/2019 01/04/2020 1:24 AM EDT MDR-GN 12/21/2019 12/21/2019 02/19/2023 1:36 AM EDT CoV-Risk 05/13/2021 05/21/2021 05/31/2021 1:21 AM EDT documented as of this encounter Care Teams Casing Operator Relationship Specialty Start Date End Date Renny Miranda MD [email or web address] PCP - General 05/13/17 07/28/18 Siomara Hinson DO [address] [place] [address] [email or web address] PCP - General 07/29/18 11/28/20 Anna Velásquez MD 15 [facility] [place] [address] [email or web address] PCP - General Family Medicine 11/29/20 Renny Miranda MD [address] [facility] [address] 1 [place] [address] [email or web address] Insurance Assigned Provider 11/27/17 10/29/18 Damien Riggs MD [address] [facility] [place] [address] [email or web address] Insurance Assigned Provider 10/29/18 01/28/19 Anna Velásquez MD [address] [facility] [address] [place] [address] [email or web address] Insurance Assigned Provider 02/01/21 04/03/23 documented as of this encounter Additional Source Comments The information contained in this document represents components of the legal health record. It is not the complete legal health record.[facility]
--- OUTSIDE RECORDS SUMMARY | 2025-04-24 11:45 | XMS_ITS | Encounter Summary ---
Author Organization [facility] Address [address] [place] [address] Phone Care Team Providers Care Sales Contract Administrator Name Role Phone Anna Velásquez MD Primary Care Provider + [phone] Encounter Details Date Type Department Care Team (Late st Contact Info) Description 2024 Procedure Pass [facility], Ct Scan - [address] [address] Social History Tobacco Use Types Packs/Day Years Used Date Smoking Tobacco: Never Smokeless Tobacco: Never Alcohol Use Standard Drinks/Week Comments Never 0 (1 standard drink = 0.6 oz pur e alcohol) Child or Family Care Answer Date Record ed Do you have problems with on e of the following making it difficult for you to work, study, or receive health care? No 07/05/2024 Education Answer Date Recorded Are you interested in help w ith more adult education (for example, completing high school, GED, job training, learning the Icelandic language, technical skills, or developing parenting skills)? No 07/05/2024 Are you concerned about learning? Not on file 07/05/2024 No 07/05/2024 Yes 07/05/2024 Food Answer Date Recorded Within the past 6 months we worried whether our food would run out before we got money to buy more. Never True 07/05/2024 Within the past 6 months the food we bought just didn't last and we didn't have enough money to get more. Never True Residential Stability Answer Date Recor ded What is your housing situation today? I have jayashree sing 07/05/2024 How many times have you move d in the past 12 months? Zero (I did not move) 07/05/2024 Paying for Meds Answer Date Recorded Do you have trouble paying for medicines? No 07/05/2024 Paying Utility Bills Answer Date Record ed Do you have trouble paying your heating or elect ricity bill? No 07/05/2024 Transportation Answer Date Recorded Has the lack of transportati on kept you from medical appointments or from getting medications? No 07/05/2024 Unemployment Answer Date Recorded Are you currently unemployed or working on a part-time or temporary basis, and looking for work? I choose not to answer 04/17/2021 Digital Access Answer Date Recorded Yes 07/05/2024 Yes 07/05/2024 Do you have reliable internet access at home? Ye s 07/05/2024 Do you have a device (e.g., phone, tablet, computer) with a working camera? No 07/05/2024 SNAP & WIC Answer Date Recorded Do you receive benefits from SNAP (the Supplemental Nutrition Assistance Program) or the Food Stamp Program? No 07/05/2024 SNAP is a free program that can help you and your family get access to healthy foods, nutrition classes, utility discounts, and more. Would you be interested in learning more? No 07/05/2024 Can we help you enroll in SNAP? Not on file 07/05/2024 Benefits received from WIC? Not on file 06/25 WIC is a free program, interested in learning mo re? Not on file 07/05/2024 Can we help you enroll in WIC? Not on file 1 09/05/2023 Intimate Partner Violence Answer Date R ecorded Denied Basic Needs Not on file 07/05/2024 In the past 12 months have y ou been in a relationship with a person who hurts, threatens, or tries to control you? No 07/05/2024 Worried food would run out Not on file 07/05 In the past 12 months have y ou been in a relationship with a person who hurts, threatens, or tries to control you? No 07/05/2024 Comments No Sex and Gender Information Value Date Recorded Sex Assigned at Not on file Legal Sex Female 9:31 PM EDT Gender Identity Not on file Sexual Orientation Not on file documented as of this encounter Plan of Treatment Upcoming Encounters Date Type Department Care Team (Late st Contact Info) Description 07/09/2025 10:40 AM EST Office Visit [facility] [address] [address] Anna Velásquez MD [address] [address] 08/08/2025 9:30 AM EST Office Visit [facility] Pulmonary, Allergy and Critical Care Medicine 10 [facility] [place] [address] Warren Zayas MD 30 [place] [address] [email or web address] documented as of this encounter Visit Diagnoses Not on filedocumented in this encounter Additional Health Concerns Assessment Noted Time PHQ-2 Depression Total Score: 0 07/05/20 24 9:35 AM EST documented as of this encounter Care Teams Sales Contract Administrator Relationship Specialty Start Date End Date Anna Velásquez MD [address] [address] PCP - General Family Medicine 11/29/20 documented as of this encounter Additional Source Comments The information contained in this document represents components of the legal health record. It is not the complete legal health record.[facility]
--- OUTSIDE RECORDS SUMMARY | 2025-04-24 11:45 | XMS_ITS | Encounter Summary ---
Author Organization [facility] Address [address] [facility] [address] [place] [address] Phone Care Team Providers Care Practical Nurse Clinical Coordinator Name Role Phone Renny Miranda MD Primary Care Provide r Renny Miranda MD Unavailable [phone] Siomara Hinson DO Primary Care Provider [phone] Damien Riggs MD Unavailable [phone] Anna Velásquez MD Primary Care Provider Anna Velásquez MD Unavailable [phone] Encounter Details Date Type Department Care Team (Latest Contact Info) Description 11/17/2017 Transcribe Orders [address] [address] Perla Zamora, CASSANDRA [address] [facility] [address] [place] [address] [email or web address] Seizure (Primary Dx) Social History Tobacco Use [...] Description 07/09/2025 10:40 AM EST Office Visit [facility] [place] [facility] [address] [facility] [address] [place] [address] Anna Velásquez MD [address] [facility] [address] [place] [address] [email or web address] 08/08/2025 9:30 AM EST Office Visit [facility] Allergy and Critical Care Medicine 10 [place] [address] Warren Zayas MD 30 [place] [address] [email or web address] documented as of this encounter Results * Levetiracetam (Keppra) level (11/17/2017 9:30 AM EDT) LEVETIRACETAM 12.9 12.0 - 46.0 mcg/mL [facility] Comment: (NOTE) ADDITIONAL INFORMATION This test was developed and its performance characteristics determined by [facility] in a manner consistent with CLIA requirements. This test has not been cleared or approved by the U.S. Food and Drug Administration. Blood 11/17/2017 9:30 AM EDT 11/17/2017 9:48 AM EDT us Perla Zamora LOGGER LAB BLOOD ORDERABLES Fin al Result [facility] [address] [place] [address] * LAMOTRIGINE LEVEL (11/17/2017 9:30 AM EDT) LAMOTRIGINE 4.1 2.5 - 15.0 mcg/mL [facility] Comment: (NOTE) ADDITIONAL INFORMATION This test was developed and its performance characteristics determined by [facility] in a manner consistent with CLIA requirements. This test has not been cleared or approved by the U.S. Food and Drug Administration. Blood 11/17/2017 9:30 AM EDT 11/17/2017 9:48 AM EDT us Perla Zamora LOGGER LAB BLOOD ORDERABLES Fin al Result [facility] [address] [place] [address] documented in this encounter Visit Diagnoses Diagnosis Seizure- Primary Other convulsions documented in this encounter Additional Health Concerns Infection Onset Date Last Indicated Resolved Time CoV-Risk 12/21/2019 12/21/2019 01/04/2020 1:24 AM EDT MDR-GN 12/21/2019 12/21/2019 02/19/2023 1:36 AM EDT CoV-Risk 05/13/2021 05/21/2021 05/31/2021 1:21 AM EDT documented as of this encounter Care Teams Practical Nurse Clinical Coordinator Relationship Specialty Start Date End Date Renny Miranda MD [email or web address] PCP - General 05/13/17 07/28/18 Siomara Hinson DO [address] [place] [address] [email or web address] PCP - General 07/29/18 11/28/20 Anna Velásquez MD 15 [facility]. [address] [place] [address] [email or web address] PCP - General Family Medicine 11/29/20 Renny Miranda MD [address] [facility] [address] 1 [place] [address] [email or web address] Insurance Assigned Provider 11/27/17 10/29/18 Damien Riggs MD [address] [facility] [place] [address] [email or web address] Insurance Assigned Provider 10/29/18 01/28/19 Anna Velásquez MD [address] [facility] [address] [place] [address] [email or web address] Insurance Assigned Provider 02/01/21 04/03/23 documented as of this encounter Additional Source Comments The information contained in this document represents components of the legal health record. It is not the complete legal health record.[facility]
--- OUTSIDE RECORDS SUMMARY | 2025-04-24 11:45 | XMS_ITS | Encounter Summary ---
Author Organization [facility] Address [address] [place] [address] Phone Care Team Providers Care Jingle Writer Name Role Phone Anna Velásquez MD Primary Care Provider [phone] Encounter Details Date Type Department Care Team (Late st Contact Info) Description 08/09/2024 Procedure Pass [facility], Ct Scan - [address] [address] Social History Tobacco Use Types Packs/Day Years [...] high school, GED, job training, learning the American language, technical skills, or developing parenting skills)? [...] 07/09/2025 10:40 AM EST Office Visit [facility] [place] [facility] [address] [address] Anna Velásquez MD [address] [address] 08/08/2025 9:30 AM EST Office Visit [facility] Pulmonary, Allergy and Critical Care Medicine 10 [facility] [place] [address] Warren Zayas MD 30 [place] [address] [email or web address] documented as of this encounter Visit Diagnoses Not on filedocumented in this encounter Additional Health Concerns Assessment Noted Time PHQ-2 Depression Total Score: 0 07/05/20 24 9:35 AM EST documented as of this encounter Care Teams Jingle Writer Relationship Specialty Start Date End Date Anna Velásquez MD [address] [address] PCP - General Family Medicine 11/29/20 documented as of this encounter Additional Source Comments The information contained in this document represents components of the legal health record. It is not the complete legal health record.[facility]
--- OUTSIDE RECORDS SUMMARY | 2025-04-24 11:45 | XMS_ITS | Clinical Summary ---
Author Organization [facility] Address [address] [place] [address] Care Team Providers Care Rolled Oats Mill Operator Name Role Phone Unavailable Primary Care [...] (1 of 3 - 19+ 3-dose series) 09/20 Colorectal Cancer Screening: Annual FOBT 2022 Colorectal Cancer Screening: Colonoscopy 2022 Colorectal Cancer Screening: Sigmoidoscopy 2022 Pneumococcal Vaccine: 50+ Years (1 of 1 - PCV) 024 Influenza Vaccine (#1) 2025 [place]
--- OUTSIDE RECORDS SUMMARY | 2025-04-24 11:46 | XMS_ITS | Data Portability ---
Author Organization [facility] Address [address] [place] [phone] Care Team Providers Care Speedometer Inspector Name Role Phone JUSTIN MONROY Primary Care Provider Assessment Encounter Date Assessment Date Assessment LastModified by Organization Details LastModified Time 06/20/2024 06/20/2024 Impacted cerumen was debrided bilaterally today using suction. She will follow up in six months. [email or web address] Not available 06/20/2024 13:45:31 12/21/2024 12/21/2024 Bilateral cerumen impactions debrided with suction. Scant bleeding from both canals after wax was removed. I have prescribed a three day course of Ofloxacin drops for prophylaxis. Follow up in six months for routine cleaning. [email or web address] Not available 12/21/2024 13:51:55 Plan of Treatment Reminders Order Date Submit Date Provider Last Modified By Organization Details Last Modified Time Details Appointments Establish ed 15 2024 11:15A M EMERY PALUMBO MD Not available Not available Not available Lab None recorded. Referral None recorded. Procedures None recorded. Surgeries None recorded. Imaging None recorded. Medication Orders ofloxacin 0.3 % ear drops 2024 025 [facility], [address] [facility], [place], [address], 12/21/2024 13:51:37 Patient TargetsNo targets recorded. Patient InstructionsNo instructions recorded. Reason for Referral None Reported. Problems Name Problem SNOMED Code Status Onset Date Resolution Date Notes Provider Name and Address Organization Details Recorded Time Impacted cerumen of bilateral ears [id number] 04324 Active 2017 Impacted cerumen, bilateral ; Note: Date Diagnosed : 04/28/2018 11:07 AM (H61.23) Not Available [facility] 4 03:30:10 Problem Notes None recorded. Procedures Surgical History Date Name Laterality Status Provider Name and Address Organization Details Recorded Time 5 Cerumen removal without microscope bilat completed Shona Bowen [facility] 12/21/2024 13:49:29 Imaging Results None recorded. Procedure Notes None recorded. Medical Equipment None Reported. Allergies Allergen ID Allergen Name Allergen Category Reaction Reaction Severity Criticality Documentation Date Start Date Code Code System Note Provider Name and Address Organization Details Recorded Time 091923 valproic acid medicatio n other Not available Not available 12/07/2023 78462 RxNorm React ion: unkno wn, unspe cifie d;; Not Available [facility] 4 01:23:55 327869 penicilli n V potassium medicatio n other Not available Not available 12/07/202326717 5 RxNorm React ion: unkno wn, unspe cifie d;; Not Available [facility] 4 01:23:56 Medications Name Sig Start Date Stop Date Status Note LastModified by Organization Details LastModified Time oyster shell calcium 500 mg tabs active Not Available Not Available Not Available diphenhyd ramine 12.5 mg/5 mL oral liquid active Not Available Not Available Not Available albuterol sulfate 2.5 mg/3 mL (0.083 %) solution for nebulizat ion TAKE 3 ML(2.5 MG TOTAL) BY NEBULIZE R EVERY 4 HOURS NEEDED FOR SHORTNES S OF BREATH OR WHEEZING active Not Available Not Available No t Available cetirizin e 10 mg tablet active [...] eye drops 06/03 completed Medicati on ID: [id number] D uration Value: 5 Prescri bed By [...] active Not Available Not Available Not Available ofloxacin 0.3 % ear drops Instill 4 drops twice a day by otic route for 3 days. 2024 active Not Available Not Available Not Avai lable Vitamin D3 10 mcg (400 unit) tablet [...] oral powder 2017 active Medicati on ID: [id number] B rand Name: Citrucel (sucrose ) Send Method: E-Prescr ibed Sub s Allowed: subs [place] Medic ationGen ericName : Citrucel (sucrose ) Not Available Not Available Not Available multivita min capsule 2017 active Medicati on ID: [id number] B rand Name: multivit valentine Sen d [...] powder packet 2017 active Medicati on ID: [id number] B rand Name: Procel Singles Send Method: E-Prescr ibed Sub s Allowed: subs [place] Medic ationGen ericName : Procel Singles Not Available Not Available Not Available Vitamin D3 10 mcg (400 unit) capsule 2017 active Medicati on ID: [id number] B rand Name: Vitamin D3 Send Method: [...] tended release 2017 active Medicati on ID: [id number] B rand Name: Lamictal XR Send Method: [...] Diagnosis SNOMED-CT Code Diagnosis ICD10 Code Diagnosis IMO Codes Diagnosis Note [id number] NIKKI NIETO PA-C [facility] on [address] [place] [phone] 06/20/2024 13:20:05 06/20/2024 13:42:06 Impacted cerumen of bilateral ears [id number] H61.23 36745 SHONA BOWEN PA-C [facility] on [address] [place] [phone] 12/21/2024 13:27:30 12/21/2024 13:50:11 Impacted cerumen of bilateral ears [id number] 067791 H61.23 Health Concerns Section Related Observation LastModified by Organization Detai ls LastModified Time None Recorded Concern Status LastModified by Organization Details LastModified Time None Recorded Advance Directives Directive None Recorded Payers Insurance Date Sequence Insurance Name Policy Number Policy Herrera Covered Member ID Herrera Member ID Guarantor Name 12/25/2024 1 [facility] Padmini Garcia [id number] Padmini Garcia Notes Date Note Type Note Provider Name and Address Organization Details Recorded Time 06/20/2024 text/html ROS as noted in the [facility] 48 year old female with developmental delay presents today with a manifest/order organizer print orders for an ear cleaning.No specific concerns from her manifest/order organizer print orders today. EMERY PALUMBO MD [address] [place] [address], [phone], [facility] 06/21/2024 11:24:01 12/21/2024 text/html ROS as noted in the [facility] 49 year old nonverbal female with developmental delay presents for six month ear cleaning with a manifest/order organizer print orders. No concerns. EMERY PALUMBO MD [address] [place] [address],[address], [phone], [facility] 12/25/2024 07:15:57 OBGyn Episode No OBEpisode recorded.
--- OUTSIDE RECORDS SUMMARY | 2025-04-24 11:46 | XMS_ITS | Clinical Summary ---
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 if she were to fall, however, would not think she would be at high risk for falls other than during transfers. She does not have significant movement with her seizures so do not think those would increase her risk of fracture. I have ordered labs to be done to check her calcium, creatinine, alk phos, PTH & vitamin D along with bone-turnover marker. I have asked them to discuss with the dentist if they are able to provide adequate dental care to make anti-resorptive rx safe should that be considered. I think the options for treatment would be denosumab (which would likely need to be continued indefinitely due to risk of rapid bone loss/vertebral compression fractures with cessation), vs zoledronic acid x 3 doses (if she could sit still for infusion) vs optimizing calcium/vitamin D intake without pharmacologic rx. I would not consider adding rx until she is definitively post-menopausal. For now, will do labs. Will request opinion of dentist and will see her back in the Spring. Assessment & Plan (02/04/2022 2:59 PM EDT): Rx's updated to reflect changes recommended by [facility] Seizure disorder 07/21/2017 Assessment & Plan (07/05/2024 1:16 PM EST): Assessment & Plan (02/08/2024 4:53 PM EDT): No medication changes were made at the hospital so nothing needs to be signed off on or adjusted at this time. She has been well and Dr. Cordova continues to manage her seizure medications. Assessment & Plan (11/26/2023 11:09 AM EDT): Unknown whether Padmini actually had a seizure but it certainly makes sense that she would have one if she ran out of her lamotrigine. Better communication among [facility] staff might have prevented this if Filemon and Rishi could have supplied alternate dose tablets while her own dose was on backorder, or they could have obtained it from another pharmacy. A UTI seems less likely but still plausible and I am happy to provide the needed orders. F/u with neurology as scheduled. Cleared to return to day program immediately w/o restrictions. Assessment & Plan (04/14/2023 5:27 PM EDT): Pt evaluated and treated for urinary tract infection at [facility]. Completed full course of antibiotics. No new symptoms or seizures since discharge Assessment & Plan (02/08/2023 3:52 PM EDT): Unremarkable evaluation in ED and no new sz or symptoms sincethen. Cause of acute, brief hypoxia unclear but she is not infrequently sleepy during the day and a postictal lack of responsiveness is c/w sz disorder so that feature is not alarming. F/u with Dr Cordova as scheduled. Assessment & Plan (03/19/2022 12:48 PM EDT): Continue AEDs per Dr Cordova. No need to make any other medication changes at this time. Assessment & Plan (02/04/2022 2:59 PM EDT): No seizures since dose change. Management per Dr Cordova. Flexion contractures Overview (04/17/2021): Bilateral arms, and is also turned at the waist since her fracture, but distal lower limbs are not contracted Assessment & Plan (07/05/2024 1:16 PM EST): Urinary incontinence Assessment & Plan (07/05/2024 1:16 PM EST): Fecal incontinence Assessment & Plan (07/05/2024 1:16 PM EST): Kyphoscoliosis Assessment & Plan (07/05/2024 1:16 PM EST): Resolved Problems Problem Noted Date Diagnosed Date Resolved Date Swelling of knee joint, right 08/04/2022 06/09/2023 Assessment & Plan (08/04/2022 3:12 PM EST): Exam severely limited by existing joint contractures; patient confined to wheelchair and staff member and I are unable to move her from it to an exam table today; and patient lacks cognition to cooperate with exam other than passively. Her knee appears clearly abnormal and according to staff is not at baseline. We will get an x-ray and if there is no finding other than soft tissue edema I will send her to orthopedics. There is no evidence of infection or other emergency at this time. Gastrostomy tube in place Overview (04/17/2021): Tube feeds 7 AM to 7 PM Encounters Date Type Department Care Team Description 04/13/2025 10:40 AM EDT Office Visit [facility] Primary [address] [place] [id number] Shannan Cali MD CP (cerebral palsy), spastic, quadriplegic (Primary Dx); G tube feedings; Seizure disorder; Flexion contractures; Full incontinence of feces 04/12/2025 Telephone [facility] Virtual Department [address] [place] [address] Warren Zayas MD Medication Management 04/12/2025 Refill [facility] [address] [place] [address] Warren Zayas MD Medication Refill 03/23/2025 Refill [facility] [address] [place] [address] Jossy Villanueva MA Medication Refill 03/05/2025 Telephone [facility] [address] [place] [address] Anna Velásquez MD Forms & Paperwork 03/05/2025 Refill [facility] [address] [facility] [address] [place] [address] Anna Velásquez MD Medication Refill 02/23/2025 Telephone [facility] [address] [place] [address] Ceci Medley Call back 02/22/2025 Refill [facility] [address] [place] [address] Swapna Live MA Medication Refill 02/19/2025 Refill [facility] [address] [place] [address] Grace Dick Medication Refill 02/16/2025 Refill [facility] Primary Care [address] [place] [address] Anna Velásquez MD Medication Refill ( One-Daily Multi-Vit/Mineral TABS) 02/07/2025 Refill [facility] [address] [place] [address] Jaky Armas MA 02/06/2025 11:30 AM EDT Office Visit [facility] [address] [place] [address] Warren Zayas MD CP (cerebral palsy), spastic, quadriplegic (Primary Dx); Abnormal CT of the chest; Weak cough; H/O recurrent pneumonia 02/06/2025 Refill [facility] [address] [place] [address] Anna Velásquez MD Medication Refill ([facility] Net [phone] called to refill medications for pt. /bacitracin 500 unit/gram ointment /bisacodyl (BISCOLAX) 10 mg suppository /magnesium hydroxide (MAGNESIUM HYDROXIDE) 400 mg/5 mL /cetirizine (ZYRTEC) 10 MG tablet please send /[facility] [place] fax # [phone] contact and advise. /) 02/05/2025 Refill [facility] Primary [facility] [address] [place] [address] Anna Velásquez MD Medication Refill 02/01/2025 Refill [facility] [address] [place] [address] Anna Velásquez MD Medication Refill 01/30/2025 Telephone [facility] [address] [place] [address] Grace Dick letter request from Last 3 Months Immunizations Immunization Administration Dates Next Due COVID-19 (Pre-05/17) Moderna Vaccine, mRNA, PF 09/15/2020,08/18/2020 Hepatitis B 07/26/1983 Hepatitis B Adult 04/16/2020,05/09/2019,04/11/20 19 INFLUENZA, SPLIT VIRUS, TRIVALENT PF 04/12/2024 INFLUENZA, SPLIT VIRUS, TRIV ALENT W/ PRESERVATIVE IM 06/01/2020,05/07/2017,04/27/2016,05/08 Influenza Quadrivalent MDCK w/Preservative IM 05/07/2017 Influenza Quadrivalent Prese rvative Free IM 06/08/2023,04/29/2022 Influenza Quadrivalent w/ Pr eservative IM 06/01/2020 Influenza Recombinant Elza valent Preservative Free IM 06/01/2020,04/16/2020,05/09/2019,04/12 Influenza Trivalent Adjuvant ed Preservative free IM 04/27/2016 Influenza, Unspecified Formulation 04/16/2020,,04/12/2018 PPD Test 04/12/2018 Pneumococcal conjugate PCV13 01/07/2016 Pneumococcal polysaccharide PPSV23 07/26/1995 Td (adult),2 Lf Tetanus Toxo id, PF, Adsorbed 06/08/2023 Td, unspecified formulation 07/26/2004 Tdap 12/02/2012 Zoster recombinant 02/08/2024,09/27/2023 Family History Medical History Relation Comments No Known Problems Father Relation Status Comments Father Mother Alive Social History Tobacco Use Types Packs/Day Years [...] high school, GED, job training, learning the Persian language, technical skills, or developing parenting skills)? [...] on file Sexual Orientation Not on file Last Filed Vital Signs Vital Sign Reading Time Taken Comments Blood Pressure 104/72 04/13/2025 10:47 AM EDT Pulse 86 04/13/2025 10:47 AM EDT Temperature 36.3 C (97.3 F) 02/06/2025 11:36 AM EDT Respiratory Rate 24 04/05/2024 8:53 AM EDT Oxygen Saturation 97% 04/13/2025 10:47 AM EDT Inhaled Oxygen Concentration - - Weight 62.4 kg (137 lb 8 oz) 02/06/2025 11:36 AM EDT Height 139.7 cm (4' 7 ) 02/06/2025 11:36 AM EDT Body Mass Index 31.96 02/06/2025 11:36 AM EDT Plan of Treatment Upcoming Encounters Date Type Department Care Team (Late st Contact Info) Description 07/09/2025 10:40 AM EST Office Visit [facility] Primary Care [address] [address] Anna Velásquez MD [address] [place] [id number] 08/08/2025 9:30 AM EST Office Visit [facility] [address] [place] [address] Warren Zayas MD [address] [place] [address] Health Maintenance Due Date Last Done Comments COLONOSCOPY 2018 FIT TEST 2018 FOBT 2018 SIGMOIDOSCOPY 2018 VIRTUAL COLONOSCOPY 2018 PNEUMOCOCCAL VACCINES (50+ years) (3 of 3 - PCV20 or PCV21) 2023 01/07/2016, 07/26/1995 INFLUENZA VACCINE (#1) 2025 , 06/08/2023, 04/29/2022, Additional history exists COVID-19 VACCINE (3 - 2024- season) 2025 09/15/2020, 08/18/2020 DEPRESSION SCREENING 07/05/2025 07/05/2024 HEPATITIS C SCREENING 07/05/2025 Postpo pedro from 1991 (Patient Declines / Guardian Declines) HIV ONE-TIME SCREENING (18-65 YEARS) 07/05/2025 Postponed from 1991 (Patient Declines / Guardian Declines) COLOGUARD 04/06/2026 04/06/2023 COLORECTAL CANCER SCREENING 04/06/2026 SCREENING FOR DIABETES 09/22/2026 09/22/2023, 2020 LIPID PANEL 06/08/2028 06/08/2023, 05/26, 04/11/2019 Adult Td,Tdap Booster 06/08/2033 06/08/2023 , 12/02/2012, 07/26/2004 ZOSTER VACCINES Completed 02/08/2024, 09/27/2023 SMOKING STATUS SCREENING (Once After 26 Yrs) Completed 04/13/2025 HEPATITIS A VACCINES Aged Out No long er eligible based on patient's age to complete this topic HIB VACCINES Aged Out No longer eligi ble based on patient's age to complete this topic MENINGOCOCCAL VACCINES (ACWY) Aged Out No longer eligible based on patient's age to complete this topic MENINGOCOCCAL VACCINES (B) Aged Out N o longer eligible based on patient's age to complete this topic Medical Devices Not on file Procedures Procedure Name Priority Date/Time Associated Diagnosis Comments LIPID PANEL Routine 06/08/2023 11:14 AM EST Encounter for routine adult medical exam with abnormal findings OUTSIDE COLOGUARD Routine 04/06/2023 from Last 3 Months or Most Recently Relevant to Health Maintenance Results * (ABNORMAL) Lipid panel (06/08/2023 11:14 AM EST) HDL 72 mg/dL [facility] Comment: Interpretation <40 mg/dL: Low HDL cholesterol (major risk factor for CHD) Greater than or equal to 60 mg/dL: High HDL cholesterol ( negative risk factor for CHD) HDL - cholesterol is affected by a number of factors, e.g. smoking, excerise, hormones, sex and age. CHOLESTEROL 156 0 - 240 mg/dL [facility] TRIGLYCERIDES 51 30 - 160 mg/dL [facility] LDL 74 50 - 129 mg/dL [facility] Comment: LDL levels in terms of risk for coronary heart disease: <100 mg/dL: Optimal 100-129 mg/dL: Near or above optimal 130-159 mg/dL: Borderline high 160-189 mg/dL: High >190 mg/dL: Very High CARDIAC RISK RATIO 2.2(L) 3.3 - 4.4 C [facility] Blood 06/08/2023 11:1 4 AM EST 06/08/2023 11:17 AM EST Anna Velásquez MD LAB BLOOD ORDERABLES Final R esult [facility] [address] [place] [address] * COLOGUARD (04/06/2023) [facility] Historical Provider HEALTH MAINTENANCE Final Result from Last 3 Months or Most Recently Relevant to Health Maintenance Insurance [facility] [place] [address] [place] [address] [employer]CO [facility] Care Teams Php Engineer Relationship Specialty Start Date End Date Anna Velásquez MD [address] [place], [place] [id number] [email or web address] PCP - General Family Medicine 11/29/20 Additional Source Comments The information contained in this document represents components of the legal health record. It is not the complete legal health record.[facility]
--- OUTSIDE RECORDS SUMMARY | 2025-04-24 11:46 | XMS_ITS | Encounter Summary ---
Author Organization [facility] Address [address] [facility] [address] [place] [address] Phone Care Team Providers Care Cable Swager Name Role Phone Siomara Hinson DO Primary Care Provider Damien Riggs MD Unavailable [phone] Anna Velásquez MD Primary Care Provider [phone] Anna Velásquez MD Unavailable [phone] Encounter Details Date Type Department Care Team (Late st Contact Info) Description 12/13/2018 Transcribe Orders [address] [id number] Siomara Hinson DO [address] [place] [id number] [email or web address] Immunity status testing (Primary Dx) Social History Tobacco Use Types [...] Encounters Date Type Department Care Team (Late Contact Info) Description 07/09/2025 10:40 AM EST Office Visit [facility] [address] [facility] [address] [place] [address] Anna Velásquez MD [address] [address] 08/08/2025 9:30 AM EST Office Visit [facility] [address] [place] [address] Warren Zayas MD [address] [place] [address] [email or web address] documented as of this encounter Results * Hepatitis B surface antigen (12/13/2018 10:03 AM EDT) HBV SURFACE ANTIGEN Negative Negative [facility] Blood 12/13/2018 10:0 3 AM EDT 12/13/2018 10:12 AM EDT Siomara Hinson DO LAB BLOOD ORDERABLES Final Result [address] [address] documented in this encounter Visit Diagnoses Diagnosis Immunity status testing- Primary Antibody response examination documented in this encounter Additional Health Concerns Infection Onset Date Last Indicated Resolved Time CoV-Risk 12/21/2019 12/21/2019 01/04/2020 1:24 AM EDT MDR-GN 12/21/2019 12/21/2019 02/19/2023 1:36 AM EDT CoV-Risk 05/13/2021 05/21/2021 05/31/2021 1:21 AM EDT documented as of this encounter Care Teams Cable Swager Relationship Specialty Start Date End Date Siomara Hinsno DO [address] [place] [address] [email or web address] PCP - General 07/29/18 11/28/20 Anna Velásquez MD [address] [address] PCP - General Family Medicine 11/29/20 Damien Riggs MD [address] [facility] [place] [address] Insurance Assigned Provider 10/29/18 01/28/19 Anna Velásquez MD [address] [facility] [address] [place] [address] Insurance Assigned Provider 02/01/21 04/03/23 documented as of this encounter Additional Source Comments The information contained in this document represents components of the legal health record. It is not the complete legal health record.[facility]
== END 2025-04-24 11:09 | disposition home or self-care (01) ==
LOC: HO.ENCR 10:33
PROVIDERS: PCP Internal Medicine; Visit Provider Dietitian, Registered
DX: Z93.1 Gastrostomy status (principal)

== ENCOUNTER → 2025-04-24 10:32 | Outpatient (BNVA) | payer MEDICAID, SELFPAY | PROVIDERS: PCP Internal Medicine; Visit Provider Dietitian, Registered | DX: Z93.1 Gastrostomy status (principal) | CPT/HCPCS: 97803 ==